=== PATIENT | female | born 1965 | race Caucasian/White ===

== ENCOUNTER → 2019-01-14 | Outpatient (CLI) | payer MEDICAID, SELFPAY ==
[2019-01-14 16:16] LABS: Follicle Stimulating Hormone 59.1 mIU/mL; Thyroid Stim Hormone (TSH) 1.56 uIU/mL (0.358-3.74)
== END | disposition home or self-care (01) ==
PROVIDERS: Visit Provider Obstetrics & Gynecology
DX: R30.0 Dysuria (principal); N95.1 Menopausal and female climacteric states
CPT/HCPCS: 36415; 83001; 84443; 87086

== ENCOUNTER 2022-07-09 08:01 | Day surgery (SDC) | payer OTHER, SELFPAY ==
--- NOTE | 2022-07-09 | IMM_PTH ---
PATIENT: MARY GALEANO LOC: EN U#:[id number] AGE/SX: 57/F ROOM: RE07/09/[address]: Dr. Claudio Katz MD : 1965 BED: DIS: 07/09/2022 SPEC #: [id number] RECD: 07/10/22 13:20 STATUS: STEPHANIE REQ #: [id number] TANESHA: 07/09/22 00:[address]: Claudio Katz DEPT: IMMUNOHISTOCHEMISTRY RECD BY: Chelsey Dyer ENTERED: 07/10/22 13:21 SP TYPE: IMMUNO OTHR DR: Dr. Jonathan Ramires MD Tissues: Anal region Procedures: CD31 (add) CK20 (add) CK5-6 (add) CK7 (add) KI-67 (add) P16 (add) P53 (add) 34BE12 (add) FACTOR VIII (add) Pankeratin (initial) MELAN-A (add) P40 (add) S-100 (add) PHYSICIAN & [address] [address] SPECIMEN INFORMATION: Tissue Source: C ? Anal polyp Clinical Info: Positive Cologuard test Specimen Number: [id number] CPT code: 50834, 24325 x12 METHODOLOGY: Deparaffinized sections of prefer/formalin-fixed tissue or PAP/DQ stained slides are incubated with monoclonal/polyclonal antibodies/oligonucleotide probes. Localization is made via biotin free immunoperoxidase method. Appropriate controls are performed and reacted as expected. Results on target cell population are indicated in the following table: RESULTS: ANTIBODY / CLONE RESULT Block C AE1-3 (AE1/AE3/PCK26) positive CK7 (OV-TL12/30) positive CK20 (KS20.8) positive 34BE12 (34BE12) positive CD31 (MASON/70A) negative Factor VIII (R Ag) negative Melan A (A103) negative S-100 (4C4.9) negative CK5-6 (D5 & 1684) positive P40 (BC28) positive P16 (E6H4) positive, block-like, strong P53 (DO-7) negative Ki-67 (30-9) positive, 95% These tests were developed and their performance characteristics determined by [facility]. They may not have been cleared or approved by the U.S. Food and Drug Administration. The FDA has determined that such clearance or approval is not necessary. The above immunohistochemical/dualISH markers are ordered and reviewed by the Pathologist. 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 AM:blossom 07/11/2022
[2022-07-09] MEDS: Lactated Ringers 1,000 ML 15 ML IV (08:10)
[2022-07-09 08:24] VITALS: BP 153/93; PULSE 64; RESP 18; TEMP 36.4; O2SAT 98; BMI 42.7
--- NOTE | 2022-07-09 08:58 | HP.PCM_ITS ---
History and Physical Date of Admission: 07/09/22 Intake Vital Signs ? 06/04/2213:07 Height 5 ft 6 in Weight: 266 lb BMI 42.9 BP 180/98 H Blood Pressure LocationB Rt brachial Position Sitting Respiration 16 Pulse 63 Pulse Source Monitor Temp 97.4 F L Temp Source Temporal Pulse Oximetry (%) 97 Oxygen Delivery Method room air Intake Visit Reasons:?POSITIVE COLOGUARD Chief Complaint: Positive cologuard Borderer Required: No Is patient in pain?: No Allergies No Known Allergies Allergy (Unverified 06/04/22 13:08) Medications aspirin 81 mg tablet,delayed release (Adult Aspirin Regimen) 81 mg PO DAILY 06/04/22 [History Confirmed 06/04/22] PFSH Medical History?(Updated 06/04/22 @ 13:[address] Claudio Katz MD) COPD (chronic obstructive pulmonary disease) Hypertension Sleep apnea Surgical History?(Updated 06/04/22 @ 13:05 by Traci Suarez) S/P cholecystectomy S/P nasal polypectomy S/P partial hysterectomy Family History?(Updated 06/04/22 @ 13:07 by Traci Suarez) Father Asthma Arthritis Cancer ?? ? prostate cancer Diabetes Heart disease Hypertension Kidney diseaseMother Arthritis Cancer ?? ? Uterine Hypertension OsteoporosisSister CVA (cerebral vascular accident) HPI HPI HPI: Patient is a 57-year-old female here for positive Cologuard test.? She has not noticed any blood in her stool or abdominal pain.? She has never had a colonoscopy.? She denies family history of colon cancer. ROS General General: Yes weight change; No appetite, fatigue, colon cancer, breast cancer or weakness HEENT HEENT: No difficulty swallowing, eye injury, eye surgery, swollen glands or hoarseness Endo Endocrine: No thyroid disease, diabetes mellitus, thyroid cancer, Hair loss, heat intolerance or cold intolerance Skin Skin: No rash or changing moles Breast Breast: No left breast lump, right breast lump, nipple discharge, breast pain, abnormal mammogram, abnormal US or breast enlargement Musc Musculoskeletal: No back problems, arthritis, rheumatoid arthritis, gout or joint pain Cardio Cardiovascular: Yes high blood pressure; No murmur, pacemaker, heart disease, atrial fibrillation, heart attack, heart stent, palpitations, shortness of breat with exertion or chest pain Psych Psychiatric: No depression, anxiety or hearing voices Resp Respiratory: Yes shortness of breath, Yes sleep apnea, No cough, Yes COPD, No asthma, No emphysema and No wheezing Gastro Gastrointestinal: No abdominal pain, No nausea or vomiting, No diarrhea, No constipation, No blood in stool, No acid reflux, No hemorrhoids, No ulcers, No gallbladder problem and No black,tarry stools Meet Hematologic: Yes blood thinners, No blood disorders, No bleeding, No anemia and No blood clots Additional Details: ASA 81mg Neuro Neurologic: No system reviewed and no additional complaints, except as documented, No as per HPI, No abnormal gait, No abnormal hearing, No abnormal movements, No abnormal speech, No behavioral changes, No burning sensations, No confusion, No convulsions, No disequilibrium, No dizziness, No localized weakness, No frequent falls, No headache(s), No lack of coordination, No loss of vision, No memory loss, No numbness, No other visual disturbances, No radicular pain, No restless legs, No sensory deficit, No syncope, No tingling, No tremor(s), No weakness and No other Exam Const General: cooperative Orientation: alert and oriented x3 HENTX Head: normal to inspection Neck Neck: normal visual inspection and full ROM Chest Chest palpation & inspection: normal inspection of the chest Resp Effort & Inspection: normal respiratory effort Auscultation: clear to auscultation bilaterally Cardio Rate: regular rate Rhythm: regular rhythm GI Inspection: non-distended Palpation: soft and nontender Skin General: no rashes or lesions noted Neuro General: patient alert and patient oriented x3 Extrem General: full ROM Psych Appearance: grossly normal Mental Status: mental status grossly normal Assessment and Plan Assessment and Plan (1) Positive colorectal cancer screening using Cologuard test: ?Status:?Acute ?Plan: Patient requires colonoscopy for positive Cologuard test.? I explained endoscopy in detail to the patient.? I explained the risks including but not limited to stroke or heart attack with anesthesia, perforation of the GI tract, bleeding, infection.? I explained that any of these could necessitate further emergency surgery.? The patient understands and all questions were answered sufficiently.? The patient wishes to proceed with procedure. Claudio Katz MD Pager: [facility] [address] [place] [address], [address] [place] [address] Office: I have re-examined the patient. There are no clinical changes since date of exam.
--- NOTE | 2022-07-09 09:00 | COLBX_PTH ---
PATIENT: MARY GALEANO LOC: EN U#:[id number] AGE/SX: 57/F ROOM: RE07/09/[address]: Dr. Claudio Katz MD : 1965 BED: DIS: 07/09/2022 SPEC #: [id number] RECD: 07/09/22 11:58 STATUS: STEPHANIE REQ #: [id number] TANESHA: 07/09/22 09:[address]: Claudio Katz DEPT: SURGICAL PATHOLOGY RECD BY: Daisy Franco ENTERED: 07/09/22 13:24 SP TYPE: COLON BX OTHR DR: Dr. Jonathan Ramires MD Tissues: A - Cecum, NOS B - Descending colon C - Anal region Procedures: Surgery Specimen Level IV HEADER OPERATION: Colonoscopy (MAC) with polypectomy PRE-OP DIAGNOSIS: Positive Cologuard test TISSUE SUBMITTED: A ? Cecum polyp, B ? Descending colon polyp, C ? Anal polyp MICROSCOPIC DIAGNOSIS A. Cecal polyp, biopsy: Tubular adenoma. B. Descending colon polyp, biopsy: Tubular adenoma. C. 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 See comment. AM:blossom 07/10/2022 COMMENT C. Immunohistochemistry ([id number]) supports the above diagnosis. MICROSCOPIC DESCRIPTION Slides are reviewed. GROSS DESCRIPTION A - Received in fixative is one container labeled with the patient's name and designated cecal polyp. The specimen consists of one irregular fragment of light raya soft tissue that measures 0.7 x 0.6 x 0.4 cm. The specimen is bisected and totally submitted in one cassette. B - Received in fixative is one container labeled with the patient's name and designated descending colon polyp. The specimen consists of one irregular fragment of light raya soft tissue that measures 0.3 x 0.3 x 0.1 cm. The specimen is totally submitted in one cassette. C - Received in fixative is one container labeled with the patient's name and designated anal polyp. The specimen consists of a single irregular fragment of raya tissue measuring 1.3 x 1.2 x 0.3 cm. The specimen is trisected and totally submitted in one cassette. / AM:blossom 07/09/2022 TC:0 [facility]: 50273 x3 ADDENDUM ADDENDUM ADDENDUM ADDENDUM ADDENDUM ADDENDUM ADDENDUM ADDENDUM ADDENDUM ADDENDUM ADDENDUM ADDENDUM ADDENDUM ADDENDUM ADDENDUM 10/02/2022 15:42 ADDENDUM 10/02/2022 15:42 ADDENDUM 10/02/2022 15:42 ADDENDUM 10/02/2022 15:42 ADDENDUM 10/02/2022 15:42 This addendum is added to incorporate an outside pathology consultation report. The case was examined at [facility] (#[id number]) and the following diagnosis was rendered. A. Cecal polyp, biopsy: Tubular adenoma. B. Descending colon polyp, biopsy: Tubular adenoma. C. Anal polyp, biopsy: Invasive poorly differentiated squamous cell carcinoma arising in a background of high-grade squamous intraepithelial lesion. Please see complete above mentioned consultation report in EMR
--- NOTE | 2022-07-09 09:50 | OP.COLON_ITS ---
Patient Name: Destiney Owens Procedure Date: 07/09/2022 9:04 AM Date of : 1965 Age: 57 Procedure: Colonoscopy Indications: Positive Cologuard test Providers: Claudio Katz MD Medicines: Monitored Anesthesia Care Patient Profile: This is a 57 year old female. Refer to note in patient chart for documentation of history and physical. Last Colonoscopy: none. The patient's first colonoscopy is today. Complications: No immediate complications. Estimated blood loss: Minimal. Procedure: Pre-Anesthesia Assessment: - Prior to the procedure, a History and Physical was performed, and patient medications and allergies were reviewed. The patient's tolerance of previous anesthesia was also reviewed. The risks and benefits of the procedure and the sedation options and risks were discussed with the patient. All questions were answered, and informed consent was obtained. Prior Anticoagulants: The patient has taken no previous anticoagulant or antiplatelet agents. After reviewing the risks and benefits, the patient was deemed in satisfactory condition to undergo the procedure. After I obtained informed consent, the scope was passed under direct vision. Throughout the procedure, the patient's blood pressure, pulse, and oxygen saturations were monitored continuously. The Colonoscope was introduced through the anus and advanced to the cecum, identified by appendiceal orifice and ileocecal valve. The colonoscopy was performed without difficulty. The patient tolerated the procedure well. The quality of the bowel preparation was good. Scope In: 9:13:15 AM Scope Withdrawal Time 0 hours 21 minutes 4 seconds Scope Out: 9:44:24 AM Total Procedure Duration Time 0 hours 31 minutes 9 seconds Findings: Three polyps were found in the anus, descending colon and cecum. These polyps were removed with a hot snare. Resection and retrieval were complete. The digital rectal exam revealed a firm anal mass. The mass was non-circumferential and located predominantly at the left bowel wall. Impression: - Three polyps at the anus, in the descending colon and in the cecum, removed with a hot snare. Resected and retrieved. - Anal mass. Recommendation: - Discharge patient to home. - Resume previous diet. - Continue present medications. - Await pathology results. - Repeat colonoscopy after studies are complete for surveillance based on pathology results. - Return to my office in 1 week. Procedure Code(s): --- Professional --- 84620, Colonoscopy, flexible; with removal of tumor(s), polyp(s), or other lesion(s) by snare technique Diagnosis Code(s): --- Professional --- K62.0, Anal polyp D12.4, Benign neoplasm of descending colon D12.0, Benign neoplasm of cecum K62.89, Other specified diseases of anus and rectum R19.5, Other fecal abnormalities CPT copyright 2017 [employer]. All rights reserved. The codes documented in this report are preliminary and upon gizzard puller review may be revised to meet current compliance requirements. Claudio Katz MD 07/09/2022 9:50:08 AM This report has been signed electronically. Number of Addenda: 0 Note Initiated On: 07/09/2022 9:04 AM
[2022-07-09 09:51] VITALS: BP 102/70; BP 153/93; PULSE 66; RESP 18; TEMP 36.2; O2SAT 98
--- NOTE | 2022-07-09 09:51 | OP.CCLET_ITS ---
07/09/2022 Jonathan Ramires Re : Colonoscopy procedure for Destiney Ramires This procedure was performed on Saturday, July 09, 2022. My impressions and recommendations are as follows: Impressions : - Three polyps at the anus, in the descending colon and in the cecum, removed with a hot snare. Resected and retrieved. - Anal mass. Recommendations : - Discharge patient to home. - Resume previous diet. - Continue present medications. - Await pathology results. - Repeat colonoscopy after studies are complete for surveillance based on pathology results. - Return to my office in 1 week. My findings are described in the full procedure note, which is enclosed. If I can be of further assistance, please feel free to contact me at Doctor phone number(s): , Work: . Sincerely, Claudio Katz MD 07/09/2022 9:50:08 AM This report has been signed electronically.
[2022-07-09 09:55] VITALS: BP 122/80; BP 153/93; PULSE 61; RESP 18; O2SAT 99
[2022-07-09 10:00] VITALS: BP 118/79; BP 153/93; PULSE 61; RESP 18; O2SAT 99
[2022-07-09 10:06] VITALS: BP 130/82; BP 153/93; PULSE 58; RESP 18; TEMP 36.5; O2SAT 98
[2022-07-09 10:21] VITALS: BP 153/93
== END 2022-07-09 10:30 | disposition home or self-care (01) ==
LOC: EN 08:02 → AC 08:04
PROVIDERS: PCP Family Medicine; Referring Provider Family Medicine; Visit Provider Surgery
PROC: 0DJD8ZZ Inspection of Lower Intestinal Tract, Via Natural or Artificial Opening Endoscopic (ICD-10-PCS; CPT 45378; principal; 2022-07-09 08:55)
DX: C21.0 Malignant neoplasm of anus, unspecified (principal); D12.4 Benign neoplasm of descending colon; D12.0 Benign neoplasm of cecum; G47.30 Sleep apnea, unspecified; Z79.82 Long term (current) use of aspirin
CPT/HCPCS: 45385; 88305; 88341; 88342; J7120; J2405

== ENCOUNTER → 2022-08-07 | Outpatient (CLI) | payer OTHER, SELFPAY ==
--- NOTE | 2022-08-07 10:00 | PET_ITS ---
EXAMINATION: FDG PET-CT INDICATIONS: A 57-year-old female with a history of anal carcinoma presenting for initial staging examination. COMPARISON EXAMINATION: None available INDEX LESION SIZE SUV INTERPRETATION Rectum-rectal vault anal verge 18.2 mm 10.5 Fulfills quantitative criteria for viable neoplasm. TECHNIQUE: Following the intravenous administration of 4.16 mCi of F-18 deoxyglucose via the right antecubital fossa, multiplanar image acquisitions of the head, neck, chest, abdomen and pelvis to level of mid-thigh, lower extremities obtained at one hour post radiopharmaceutical administration contemporaneously interpreted with the current CT of the head, neck, chest, abdomen and pelvis to level of mid-thigh, lower extremities dated 08/07/22 via coregistration reveal: SERUM GLUCOSE LEVEL: 119 mg/dl. HEIGHT: 67 inches. WEIGHT: 274 lbs. FINDINGS: Head/Neck: There is no evidence of abnormal increased glucose metabolism in the pharyngeal mucosal space, parapharyngeal space, bilateral-lateral and anterior neck, hypopharynx and distribution of the laryngeal structures. The visualized portion of the cerebral cortical-subcortical structures demonstrate symmetric and preserved glucose metabolism. CHEST: There is no quantitative scintigraphic evidence of abnormal increased glucose metabolism within the context of the bilateral hemithorax pulmonary parenchyma, right and left hemithoracic pleural interface, mediastinal structures and thoracic perihilum.? Prominent radiopharmaceutical concentration is identified in the left ventricular myocardium commensurate with the [place]. Pertinent chest CT findings are as follows. Bilateral axillary soft tissue densities with fatty hilus formation are nonglucose avid. Scattered mediastinal soft tissue reveals no evidence of increased tracer uptake. Minimal calcification is defined in the thoracic aorta without evidence of aneurysm, dilatation. There are no parenchymal densities-nodules defined in the right and left hemithorax with quantitatively significant increased FDG uptake. Abdomen/Pelvis: Focal increased radiopharmaceutical concentration is defined in the lower pelvis contiguous to the distal rectal vault extending to the anal verge. The calculated maximum standard uptake value is 10.5. The maximum axial diameter of the metabolic, morphologic abnormality is 18.2 mm. Normal physiologic distribution of the radiopharmaceutical is apparent in the hepatic (3.3) and splenic parenchyma, both renal units, bladder and remaining visualized intestinal tract. Diffuse radiopharmaceutical concentration is noted in all four quadrants of the abdomen and pelvis. The abdomen and pelvis CT findings are as follows. The gallbladder is surgically absent. There is atherosclerotic calcification defined in the abdominal aorta without evidence of dilatation-aneurysm formation. Pelvic arterial calcification is encountered. Right and left inguinal soft tissue densities are non-glucose avid. Right and left fat containing inguinal hernias are identified. The uterus appears surgically absent. Calcification is noted in the apparent vaginal cuff. Skeletal: Degenerative changes are noted in the cervical, thoracic and lumbar spine. PET/PET/CT Tumor Base -Thigh Init IMPRESSION: 1. ABNORMAL EXAMINATION INDICATIVE OF MALIGNANT-VIABLE NEOPLASM. 2. Enhanced radiopharmaceutical concentration noted in the rectum-rectal vault extending to the anal verge fulfills quantitative criteria for viable neoplasm. 3. No other quantitatively significant hypermetabolic abnormalities are noted. There is no definitive scintigraphic evidence of distant metastatic disease. Electronic Signature Ezra Laureano D.O. Accurate Quantification of SUVs for this report are calculated using the exclusive [employer] Technology. (U.S. Patent No. 10, [id number] 983). Standardization and correction of the FDG SUV metric via [employer] technology allow for vendor non-specific objective quantitative examination comparison and optimization of the sensitivity and specificity of the FDG PET-CT examination. Electronically Signed: Ezra Laureano, at 18:36 EST ,
== END | disposition home or self-care (01) ==
LOC: ONC 09:52
PROVIDERS: PCP Family Medicine
DX: C21.0 Malignant neoplasm of anus, unspecified (principal)
CPT/HCPCS: 78815; A9552

== ENCOUNTER 2023-08-18 10:23 | Emergency (ER) | payer OTHER, SELFPAY ==
[2023-08-18 10:24] VITALS: BP 167/91; PULSE 77; RESP 20; TEMP 35.7; O2SAT 97; BMI 45.3
[2023-08-18 10:27] VITALS: BP 167/91; PULSE 77; RESP 20; TEMP 35.7; O2SAT 97
--- NOTE | 2023-08-18 10:47 | NURSING ---
NO OLD EKGS
--- NOTE | 2023-08-18 11:20 | RAD_ITS ---
STUDY: X-RAY CHEST REASON FOR EXAM: Female, 58 years old. Cough TECHNIQUE: PA and lateral views of the chest. COMPARISON: None. FINDINGS: The lungs are clear and expanded. There is no demonstrated pleural abnormality. Normal size heart. Normal mediastinum and geno. Normal visualized pulmonary arteries. Normal visualized aortic arch and descending thoracic aorta. There is demineralization of the osseous structures. Normal visualized ribs, clavicles, and shoulders. There is no demonstrated abnormality of the visualized soft tissue structures of the upper abdomen. RAD/Chest PA and Lateral IMPRESSION: No acute abnormality is seen. Electronically Signed: Dank Lang MD at 12:07 [facility] ,
--- NOTE | 2023-08-18 11:21 | EDS_ITS ---
HPI <OMAR Horn - Last Filed: 08/18/23 11:25> History of Present Illness Chief Complaint: Shortness of Breath Narrative Narrative: Patient presenting today with a cough that she has had for the past 2 to 3 weeks. She reports that it initially was a dry cough over the past few days has become more of a productive cough. She reports that it has worsened since Friday and she has had intermittent fevers. She reports that she is also short of breath with exertion. She also reports having right ear fullness, she found leftover Augmentin that her was prescribed and took 5 days worth of this medication twice per day. She denies any chest pain. PMH includes BROOKE. PFSH <OMAR Horn - Last Filed: 08/18/23 11:25> PFSH Medical History Alcohol use COPD (chronic obstructive pulmonary disease) CPAP (continuous positive airway pressure) dependence Heartburn History of stress test Hypertension Low iron Non-smoker Post-menopausal Shortness of breath on exertion Sleep apnea Wears contact lenses Home Medications NK 08/18/23 [History Last Taken Unknown] Allergy/AdvReac Type Severity Reaction Status Date / Time No Known Allergies Allergy Verified 08/18/23 10:23 Family History Father Asthma Arthritis Cancer prostate cancer Diabetes Heart disease Hypertension Kidney disease Mother Arthritis Cancer Uterine Hypertension Osteoporosis Sister CVA (cerebral vascular accident) Surgical History S/P cholecystectomy S/P nasal polypectomy S/P partial hysterectomy Social History Smoking Status: Never smoker ROS <OMAR Horn - Last Filed: 08/18/23 11:25> ROS ED Constitutional Constitutional ED: Reports fever(s) and subjective Cardiovascular Cardiovascular: Denies chest pain or palpitations Respiratory/Chest Respiratory/Chest: Reports cough and dyspnea on exertion; Denies tachypnea or wheezing Gastrointestinal Gastrointestinal: Denies abdominal pain, nausea or vomiting Musculoskeletal Musculoskeletal: Denies arthralgias or myalgias Integumentary Denies rash Neurologic Neurologic: Denies weakness EXAM <OMAR Horn - Last Filed: 08/18/23 11:25> Physical Exam Const Vital Signs: 08/18/23 10:24 08/18/23 10:56 08/18/23 10:27 Temperature 96.3 F L 96.3 F L Temperature Source Temporal Temporal Pulse Rate 77 77 Respiratory Rate 20 H 20 H Respiratory Depth Normal Respiratory Pattern Tachypnea Blood Pressure 167/91 H 167/91 H Blood Pressure Mean 116 116 Pulse Ox 97 97 Oxygen Delivery Method Room Air Room Air Positive well nourished, well developed and no apparent distress General Appearance ED: well developed HEENT Reports normocephalic and head/scalp atraumatic Mouth ED: Yes moist mucous membranes normal Eyes PERRL and EOMs intact bilaterally Neck full ROM and supple Chest Wall inspection of chest normal Resp normal respiratory effort and clear to auscultation bilaterally Cardio regular rate and regular rhythm GI soft to palpation, non-tender, non-distended and no masses Back/Spine normal ROM and normal to inspection Extremity normal to inspection and full ROM Neuro oriented x3, CN's II-XII intact bilaterally, moves all extremities, no focal motor deficits and no sensory deficits noted Sensorium / Orientation: awake and alert Psych mental status grossly normal and thought process normal Skin no rashes or lesions noted and no wounds <Dr. Fco Augustin MD - Last Filed: 08/18/23 11:46> Physical Exam Const Vital Signs: 08/18/23 10:24 08/18/23 10:56 08/18/23 10:27 Temperature 96.3 F L 96.3 F L Temperature Source Temporal Temporal Pulse Rate 77 77 Respiratory Rate 20 H 20 H Respiratory Depth Normal Respiratory Pattern Tachypnea Blood Pressure 167/91 H 167/91 H Blood Pressure Mean 116 116 Pulse Ox 97 97 Oxygen Delivery Method Room Air Room Air MDM <OMAR Horn - Last Filed: 08/18/23 11:25> [facility] MDM Narrative Medical decision making narrative: Patient presenting due to a cough that she has had over the past 2 weeks or so that worsened on Friday. She has felt a little short of breath on exertion. She is nontoxic-appearing. Chest x-ray will be obtained to rule out infiltrate. I did offer to obtain COVID/influenza testing but she declines. Will give her an albuterol inhaler. <Dr. Fco Augustin MD - Last Filed: 08/18/23 11:46> MDM Radiography Chest X-Ray - ED: 2 View (2 view chest x-ray independent reviewed interpreted by me at 1146 reveals no evidence of pneumonia. Cardiac silhouette and size normal. Lung parenchyma normal. Perihilar region normal. Osseous structures are unremarkable.) Discharge Plan Triage Chief Complaint: Shortness of Breath ED Midlevel Provider: Dahlia Dominguez ED Provider: Fco Augustin Dx/Rx/DC Orders Prescriptions: No Action NK Primary Care Provider: Jonathan Ramires Referrals: Jonathan Ramires MD [Primary Care Provider] -
--- NOTE | 2023-08-18 11:21 | EX.ED.DYSGE1 ---
HPI <OMAR Horn - Last Filed: 08/18/23 13:38> History of Present Illness Chief Complaint: Shortness of Breath Narrative Narrative: Patient presenting today with a cough that she has had for the past 2 to 3 weeks. She reports that it initially was a dry cough over the past few days has become more of a productive cough. She reports that it has worsened since Friday and she has had intermittent fevers. She reports that she is also short of breath with exertion. She also reports having right ear fullness. She denies any chest pain. PMH includes BROOKE. PFSH <OMAR Horn - Last Filed: 08/18/23 13:38> PFSH Medical History Alcohol use COPD (chronic obstructive pulmonary disease) CPAP (continuous positive airway pressure) dependence Heartburn History of stress test Hypertension Low iron Non-smoker Post-menopausal Shortness of breath on exertion Sleep apnea Wears contact lenses Home Medications doxycycline hyclate 100 mg capsule 100 mg PO BID 5 days #10 caps 08/18/23 [Rx Last Taken Unknown] Allergy/AdvReac Type Severity Reaction Status Date / Time No Known Allergies Allergy Verified 08/18/23 10:23 Family History Father Asthma Arthritis Cancer prostate cancer Diabetes Heart disease Hypertension Kidney disease Mother Arthritis Cancer Uterine Hypertension Osteoporosis Sister CVA (cerebral vascular accident) Surgical History S/P cholecystectomy S/P nasal polypectomy S/P partial hysterectomy Social History Smoking Status: Never smoker ROS <OMAR Horn - Last Filed: 08/18/23 13:38> ROS ED Constitutional Constitutional ED: Reports fever(s) and subjective Cardiovascular Cardiovascular: Denies chest pain or palpitations Respiratory/Chest Respiratory/Chest: Reports cough and dyspnea on exertion; Denies tachypnea or wheezing Gastrointestinal Gastrointestinal: Denies abdominal pain, nausea or vomiting Musculoskeletal Musculoskeletal: Denies arthralgias or myalgias Integumentary Denies rash Neurologic Neurologic: Denies weakness EXAM <OMAR Horn - Last Filed: 08/18/23 13:38> Physical Exam Const Vital Signs: 08/18/23 10:24 08/18/23 10:56 08/18/23 10:27 Temperature 96.3 F L 96.3 F L Temperature Source Temporal Temporal Pulse Rate 77 77 Respiratory Rate 20 H 20 H Respiratory Depth Normal Respiratory Pattern Tachypnea Blood Pressure 167/91 H 167/91 H Blood Pressure Mean 116 116 Pulse Ox 97 97 Oxygen Delivery Method Room Air Room Air 08/18/23 13:40 08/18/23 13:41 Temperature Temperature Source Pulse Rate 79 75 Respiratory Rate 20 H 16 Respiratory Depth Respiratory Pattern Blood Pressure 154/82 H 154/82 H Blood Pressure Mean 106 106 Pulse Ox 96 97 Oxygen Delivery Method Room Air Positive well nourished, well developed and no apparent distress General Appearance ED: well developed HEENT Reports normocephalic, head/scalp atraumatic and TM's clear Tympanic Membrane ED: Yes TM's clear bilateral Mouth ED: Yes moist mucous membranes normal Eyes PERRL and EOMs intact bilaterally Neck full ROM and supple Chest Wall inspection of chest normal Resp normal respiratory effort and clear to auscultation bilaterally Cardio regular rate and regular rhythm GI soft to palpation, non-tender, non-distended and no masses Back/Spine normal ROM and normal to inspection Extremity normal to inspection and full ROM Neuro oriented x3, CN's II-XII intact bilaterally, moves all extremities, no focal motor deficits and no sensory deficits noted Sensorium / Orientation: awake and alert Psych mental status grossly normal and thought process normal Skin no rashes or lesions noted and no wounds <Dr. Fco Augustin MD - Last Filed: 08/18/23 15:48> Physical Exam Const Vital Signs: 08/18/23 10:24 08/18/23 10:56 08/18/23 10:27 Temperature 96.3 F L 96.3 F L Temperature Source Temporal Temporal Pulse Rate 77 77 Respiratory Rate 20 H 20 H Respiratory Depth Normal Respiratory Pattern Tachypnea Blood Pressure 167/91 H 167/91 H Blood Pressure Mean 116 116 Pulse Ox 97 97 Oxygen Delivery Method Room Air Room Air 08/18/23 13:40 08/18/23 13:41 Temperature Temperature Source Pulse Rate 79 75 Respiratory Rate 20 H 16 Respiratory Depth Respiratory Pattern Blood Pressure 154/82 H 154/82 H Blood Pressure Mean 106 106 Pulse Ox 96 97 Oxygen Delivery Method Room Air [facility] <OMAR Horn - Last Filed: 08/18/23 13:38> [facility] Narrative Medical decision making narrative: Patient presenting due to a cough that she has had over the past 2-3 weeks or so that worsened on Friday. She has felt a little short of breath on exertion. She is nontoxic-appearing. Chest x-ray will be obtained to rule out infiltrate. I did offer to obtain COVID/influenza testing but she declines. Will give her an albuterol inhaler. Given her symptoms have been going on this long and have gotten worse, I think she would benefit from antibiotics. She will be started on Doxy and will be discharged home in stable condition. She is to follow-up with her PCP and is comfortable with plan. Radiography X-Ray: Read by ED Physician and Read by Radiologist Diagnostic Testing: Clinical Impression(s) from Imaging Studies Chest X-Ray 08/18/23 11:20 IMPRESSION: No acute abnormality is seen. Electronically Signed: Dank Lang MD at 12:07 RUST , EKG Initial EKG: Comments: 67 bpm, normal sinus rhythm, no ST elevation, no signs of cardiac ischemia, reviewed and interpreted by attending ED physician <Dr. Fco Augustin MD - Last Filed: 08/18/23 15:48> [facility] Narrative Medical decision making narrative: Patient presenting due to a cough that she has had over the past 2-3 weeks or so that worsened on Friday. She has felt a little short of breath on exertion. She is nontoxic-appearing. Chest x-ray will be obtained to rule out infiltrate. I did offer to obtain COVID/influenza testing but she declines. Will give her an albuterol inhaler. Given her symptoms have been going on this long and have gotten worse, I think she would benefit from antibiotics. She will be started on Doxy and will be discharged home in stable condition. She is to follow-up with her PCP and is comfortable with plan. I have personally performed a face to face assessment of the patient and have reviewed the ELEN Note. I performed a substantive portion of the visit including all aspects of the following. My weldon findings include: History is remarkable for history of chronic bronchitis. Patient presents with cough for greater than 3 weeks. It is at times productive however she does not spit up her sputum. She also complains of fever. She denies headache, visual, ocular auditory symptoms. She presently denies dyspnea. She has had slight increase in shortness of breath with activity. She denies anginal chest discomfort with activity. Exam is remarkable for patient appearing ill. Her vital signs are remarkable for elevated blood pressure. She does have history of wheezing and chronic bronchitis. She does not have history of hypertension. HEENT exam is unremarkable. Lungs reveal expiratory wheezing. Patient was treated with albuterol metered-dose inhaler. Breath sounds are symmetric. There is no egophony or increased vocal fremitus. Heart is regular. Rate is normal. There is no murmur, gallop or rub. Lower extremity exam is no swelling, discoloration, leg vein distention, palpable cords tenderness on the distribution of deep venous system. Medical Decision Making in light of patient's history, past medical history and oscillatory findings chest x-ray was obtained. Chest x-ray was independent reviewed interpreted by me as negative for any acute process. Plan is doxycycline. She was discharged home in stable condition. Other additions or changes: [None] Radiography Chest X-Ray - ED: 2 View (2 view chest x-ray independent reviewed interpreted by me at 1146 reveals no evidence of pneumonia. Cardiac silhouette and size normal. Lung parenchyma normal. Perihilar region normal. Osseous structures are unremarkable.) Diagnostic Testing: Clinical Impression(s) from Imaging Studies Chest X-Ray 08/18/23 11:20 IMPRESSION: No acute abnormality is seen. Electronically Signed: Dank Lang MD at 12:07 EST , Discharge Plan Triage Chief Complaint: Shortness of Breath ED Midlevel Provider: Dahlia Dominguez ED Provider: Fco Augustin Dx/Rx/DC Orders Clinical Impression: Bronchitis Instructions: ED Upper Resp Infec Abx Tx Prescriptions: New doxycycline hyclate 100 mg capsule 100 mg PO BID 5 Days Qty: 10 0RF Primary Care Provider: Jonathan Ramires Referrals: Jonathan Ramires MD [Primary Care Provider] - 5-7 Days Activity Restrictions/Additional Instructions: Follow-up with your PCP and return for any worsening of your symptoms. Disposition Disposition: Home, Self Care Discharge Date/Time: 08/18/23 13:42
[2023-08-18] MEDS: Albuterol Sulfate 8 gm Inhaler (60 puffs) 2 PUFF INHALATION (12:59)
[2023-08-18] MEDS: Doxycycline 100 MG CAPSULE PO (13:39)
[2023-08-18 13:40] VITALS: BP 154/82; PULSE 79; RESP 20; O2SAT 96
[2023-08-18 13:41] VITALS: BP 154/82; PULSE 75; RESP 16; O2SAT 97
== END 2023-08-18 13:42 | disposition home or self-care (01) ==
PROVIDERS: Emergency Provider Emergency Medicine; PCP Family Medicine; Visit Provider Emergency Medicine
DX: J40 Bronchitis, not specified as acute or chronic (principal); J44.9 Chronic obstructive pulmonary disease, unspecified; I10 Essential (primary) hypertension
CPT/HCPCS: 71046; 93005; 99283